=== PATIENT | male | born 1950 | race Caucasian/White ===

== ENCOUNTER → 2019-01-30 | Outpatient (CLI) | payer OTHER ==
--- NOTE | 2019-01-30 13:08 | PCVCIMAG ---
EXAM: BILATERAL CAROTID DUPLEX INDICATION: Carotid Occlusive Disease. FINDINGS: Doppler Measurements (centimeters per second): RIGHT: Peak CCA-67, Peak ECA-55, Diastolic ICA-12, Peak ICA-54, ICA/CCA Ratio-0.8. LEFT: Peak CCA-75, Peak ECA-60, Diastolic ICA-16, Peak ICA-69, ICA/CCA Ratio-0.9. RIGHT CAROTID: The carotid bulb has mild plaque. The proximal internal carotid artery shows <40% stenosis. The common carotid artery shows no significant stenosis. The external carotid artery shows no significant stenosis. LEFT CAROTID: The carotid bulb has mild plaque. The proximal internal carotid artery shows <40% stenosis. The common carotid artery shows no significant stenosis. The external carotid artery shows no significant stenosis. Antegrade flow in both vertebral arteries. IMPRESSION: <40% stenosis of the right internal carotid artery with mild plaque. <40% stenosis of the left internal carotid artery with mild plaque. LOC:[place] [id number]
== END | disposition home or self-care (01) ==
LOC: PCVCIMAG 10:22
PROVIDERS: ATTEND Internal Medicine Cardiovascular Disease
DX: I65.23 Occlusion and stenosis of bilateral carotid arteries (principal)
CPT/HCPCS: 93880

== ENCOUNTER → 2019-09-01 | Outpatient (CLI) | payer OTHER | END | disposition home or self-care (01) | LOC: PCVCCLINIC 13:30 | PROVIDERS: ATTEND Internal Medicine Cardiovascular Disease | DX: I25.10 Atherosclerotic heart disease of native coronary artery without angina pectoris (principal); E78.00 Pure hypercholesterolemia, unspecified; I10 Essential (primary) hypertension; I65.23 Occlusion and stenosis of bilateral carotid arteries; R94.31 Abnormal electrocardiogram [ECG] [EKG]; I45.10 Unspecified right bundle-branch block; Z95.1 Presence of aortocoronary bypass graft; Z79.82 Long term (current) use of aspirin; Z79.899 Other long term (current) drug therapy; Z87.891 Personal history of nicotine dependence | CPT/HCPCS: 36415; 80061; 93005; G0463 ==